=== PATIENT | female | born 1995 | race Two or more races ===

== ENCOUNTER 2023-06-28 05:58 | Inpatient (IN) ==
--- NOTE | 2023-06-25 10:49 | Anesthesiology Consultation ---
Date of Service June 25, 2023 Assessment & Plan (1) Encounter for pre-operative examination: Chart Review Chart Review: entry level project engineer initiated -COVID screening: Per PAT nursing assessment on 06/25/23. No known COVID-19 pos itive contacts or current COVID-19 related symptoms. Travel screen negative. At surgeon discretion if preop Covid testing being done. History Surgery Operation Date: 06/28/23 07:30 Proposed Procedures p Section (Delivery of Baby Through Abdominal Incision) - Jacquelyn Fuentes MD Height/Weight Height: 5 ft 1 in Weight: 69.853 kg Allergies Allergy/AdvReac Type Severity Reaction Status Date / Time No Known Allergies Allergy Verified 06/25/23 09:39 Medications Home Medications Medication Instructions Recorded Confirmed Last Taken vit-iron fum-folic ac 1 tab PO QAM 05/14/23 06/25/23 Unknown [ Vitamin] ferrous sulfate 325 mg (65 mg 325 mg PO DAILY #30 tabs 06/05/23 06/25/23 Unknown iron) tablet Past Medical History Medical History (Updated 06/25/23 @ 10:49 by Joanne Lipscomb PA-C) Anemia Per records -seen by heme- on oral iron- will do iron infusions if PO iron not effective Past Family History Family History Father Heart disease Past Surgical History Surgical History Hx of section Social History Smoking Status: Never smoker Do You Dip or Chew Tobacco: No Hx Alcohol Use: No Hx Substance Use: No substance use type: does not use
--- NOTE | 2023-06-27 16:24 | History & Physical Report ---
Date of Service June 27, 2023 Assessment & Plan (1) Encounter for pre-operative examination: (2) Supervision of normal intrauterine in multigravida: (3) Previous delivery affecting , antepartum: Plan 27 yo at 40 5/7 wga presents for preop to planned repeat CS VSS NST reactive Discussed indications, risks, benefits, alternatives with risks including infection, bleeding, injury to adjacent structures (bowel, bladder, ureters, blood vessels, nerves, baby), possible need for blood transfusion and/or life saving hysterectomy, VTE. Consent reviewed in detail w/ pt and signed after all questions answered to her satisfaction. History of Present Illness Chief Complaint: preop Primary Care Provider: NO PCP 27 yo at 40 5/7 wga presents for preop to planned repeat CS. +FM; denies regular ctx, LOF, VB. PNI: CSx1 GBS+ urine anemia Past erp analyst Hx: G1 2019 pLTCS in [facility] denies hx STIs denies hx abnl paps Allergies Allergy/AdvReac Type Severity Reaction Status Date / Time No Known Allergies Allergy Verified 06/27/23 14:43 Home Medications Medication Instructions Recorded Confirmed Type ferrous sulfate 325 mg (65 mg 325 mg PO DAILY #30 tabs 06/05/23 06/27/23 Rx iron) tablet [id number] 1 mg 1 tab PO QAM 06/27/23 06/27/23 History tablet Patient History Medical History Anemia Per records -seen by heme- on oral iron- will do iron infusions if PO iron not effective Surgical History Hx of section Family History Father Heart disease Social History Smoking Status: Never smoker Second Hand Exposure: No; Do You Dip or Chew Tobacco: No; Hx Alcohol Use: No Hx Substance Use: No Preferred Language: [facility] Python Architect Required: No Beliefs That Will Affect Care: None marital status: marital status details: Savage (34) [phone] Current Living Situation: Family current occupational status: unemployed Feels Safe at Home: Yes Assistive Devices: None Physical Exam Respiratory: normal respiratory effort, lungs clear to auscultation Cardiovascular: RRR, no murmur, no edema Genitourinary: NST reactive Results & Data Laboratory Results OB Labs: Blood Type A Positive 11/22/22 Antibody Screen NEGATIVE 11/22/22 Hemoglobin 12.3 g/dl (12.0-16.0) 04/05/23 Hematocrit 37.1 % (37.0-47.0) 04/05/23 Mean Corpuscular Volume 88.5 fL (80.0-100.0) 01/31/23 Platelet Count 224 K/uL (130-400) 01/31/23 Rubella IgG Antibody Immune (Immune) 11/22/22 Rapid Plasma Reagin Nonreactive (Nonreactive) 11/22/22 Hepatitis B Surface Antigen. NON-REACTIVE (NON-REACTIVE) 11/22/22 Hepatitis C Antibody (EIA) NON-REACTIVE (NON-REACTIVE) 11/22/22 HIV (1&2) Ag and Ab Confirmation NON-REACTIVE (NON-REACTIVE) 11/22/22 Glucose 1 Hour 50 gm Load 121 mg/dl (70-130) 04/05/23 OB Optional Labs: Chlamydia trachomatis RNA Not Detected (NotDetected) 11/22/22 Neisseria gonorrhoeae RNA Not Detected (NotDetected) 11/22/22 Labs Reviewed: declined cf/sma/genetics--akh GBS+ Diagnostic Findings Post plac Coding Level of Care Code None Diagnoses Encounter for pre-operative examination Z01.818 Supervision of normal intrauterine in multigravida Z34.80 Previous delivery affecting , antepartum O34.219
[~2023-06-28 05:58] MED LIST: LACTATED RINGER'S 1,000 ML IV PRN; LIDOCAINE 1% LOCAL 20 ML VIAL INFIL PRN; OXYTOCIN 30 UNITS/500 ML BAG IV PRN
[2023-06-28] MEDS ORDERED: LACTATED RINGER'S 1,000 ML IV SCH (06:00)
[2023-06-28] MEDS ORDERED: CITRIC ACID/SODIUM CITRATE 15 ML UDC PO SCH (06:00)
[2023-06-28] MEDS ORDERED: ceFAZolin 2000MG 2,000 MG/15 ML SYR IV SCH (06:00)
[2023-06-28] MEDS ORDERED: ceFAZolin 2000MG 2,000 MG/15 ML SYR IV ONE (06:30)
[2023-06-28 07:01] LABS: Hematocrit (blood only) 41.1 % (37.0-47.0); Hemoglobin 13.8 g/dl (12.0-16.0); Mean Corpuscular Hemoglobin 31.9 pg (25.0-34.0); Mean Corpuscular Hgb Conc 33.6 g/dL (32.0-36.0); Mean Corpuscular Volume 95.1 fL (80.0-100.0); Platelet Count 180 K/uL (130-400); RDW Coefficient of Variation 14.6 % (11.5-14.5); RDW Standard Deviation 50.3 fL (36.4-46.3); Red Blood Count 4.32 M/uL (4.20-5.40); White Blood Count 6.95 K/ul (4.8-10.8)
--- NOTE | 2023-06-28 08:59 | History & Physical Bridge Note ---
Date of Service June 28, 2023 History & Physical Bridge Note I have examined the patient, reviewed the History & Physical and in the interval since the performance of the History & Physical I have noted the following changes of clinical significance: no changes noted. Delay of starting procedure due to +antibody screen, which did return and upon confirmation of blood availability will move back for procedure
[2023-06-28] MEDS ORDERED: MoRPHine SULFATE PF 1 MG/ML 10 ML AMP/VIAL ONE (09:31)
[2023-06-28] MEDS ORDERED: OXYTOCIN 10 UNITS/ML VIAL ONE (10:02)
[2023-06-28] MEDS ORDERED: fentaNYL citrate PF 100 MCG/2 ML VIAL ONE (10:03)
[2023-06-28] MEDS ORDERED: NALOXONE HCL 0.4 MG/1 ML VIAL/CARP IV PRN (10:17)
[2023-06-28] MEDS ORDERED: HYDROmorphone INJ 0.5 MG/0.5 ML SYR IV PRN (10:17)
[2023-06-28] MEDS ORDERED: METOCLOPRAMIDE HCL 10 MG in SODIUM CHLORIDE 0.9% 50 ML IV PRN (10:17)
[2023-06-28] MEDS ORDERED: MoRPHine SULFATE PF 1 MG/ML 10 ML AMP/VIAL INT SPINAL ONE (10:17)
[2023-06-28] MEDS ORDERED: NALOXONE HCL 1 MG in SODIUM CHLORIDE 0.9% 1000ML 1,000 ML IV PRN (10:17)
[2023-06-28] MEDS ORDERED: LACTATED RINGER'S 500 ML IV PRN (10:17)
[2023-06-28] MEDS ORDERED: MoRPHine SULFATE 2 MG/ML CARP IV PRN (10:17)
[2023-06-28] MEDS ORDERED: NALOXONE HCL 0.08 MG in SYRINGE 1.8 ML IV PRN (10:17)
[2023-06-28] MEDS ORDERED: PROMETHAZINE HCL 12.5 MG in SODIUM CHLORIDE 0.9% 50 ML IV PRN (10:17)
[2023-06-28] MEDS ORDERED: MEPERIDINE HCL 25 MG/ML CARP/VIAL IV PRN (10:17)
[2023-06-28] MEDS ORDERED: NALBUPHINE HCL INJ 10 MG/ML AMP IV PRN (10:17)
[2023-06-28] MEDS ORDERED: diphenhydrAMINE 50 MG/ML VIAL IV PRN (10:17)
[2023-06-28] MEDS ORDERED: ONDANSETRON INJ 2 MG/ML 2 ML VIAL IV PRN (10:17)
[2023-06-28] MEDS ORDERED: ePHEDrine sulfate 50 MG/ML AMP IV PRN (10:17)
[2023-06-28] MEDS ORDERED: SODIUM CHLORIDE 0.9% 1000ML 1,000 ML IV SCH (10:30)
[2023-06-28] MEDS ORDERED: NO NARCOTICS OR SEDATIVES SCH (10:30)
[2023-06-28] MEDS ORDERED: DC INTRASPINAL MORPHINE SCH (10:30)
[2023-06-28] MEDS ORDERED: DIPHTHERIA/TETANUS/PERTUSSIS Vaccine (Tdap, Age 7+yrs) 0.5mL SYR/VL IM ONE (10:32)
[2023-06-28] MEDS ORDERED: SENNA 8.6 MG TAB PO PRN (10:32)
[2023-06-28] MEDS ORDERED: MAGNESIUM HYDROXIDE SUSP 30 ML UDC PO PRN (10:32)
[2023-06-28] MEDS ORDERED: HYDROCORTISONE ACETATE 25 MG SUPP PR PRN (10:32)
[2023-06-28] MEDS ORDERED: BENZOCAINE 20% SPRY 85 APPLN/85 GM CAN EXT PRN (10:32)
[2023-06-28] MEDS ORDERED: ePHEDrine sulfate 50 MG/ML SYR ONE (10:37)
--- NOTE | 2023-06-28 10:41 | Operative Report ---
PG Post Operative Report Pre & Post Diagnosis Operation Date: 06/28/23 07:30 Pre-Op Diagnosis: Single intrauterine at 40 6/7 wga History CS x 1 GBS+ Post-Op Diagnosis: Single intrauterine at 40 6/7 wga History CS x 1 GBS+ I identified the patient and participated in the time-out.: Yes Procedure Operation Date: 06/28/23 07:30 Actual Procedures p Repeat Low Transverse Section; Live female child at 1001(Bilateral) - Jacquelyn Feuntes MD Surgeon Jacquelyn Fuentes MD Forest Botany Instructor MD Elmer Estimated Blood Loss 600 Findings Consistent with Post-Op Diagnosis Normal appearing uterus, bilateral fallopian tubes and ovaries. Lower uterine segment was slightly thin but no window was noted. Viable female infant with APGARs of 8 and 9 at 1 and 5 minutes, respectively Fluids 1L Crystalloid, 300cc UOP by neal catheter Specimens Placenta, cord blood Drains Neal draining clear urine Anesthesia Type Spinal Complications none Disposition Accompanied Patient To Recovery: Yes Disposition: L&D Indications 27 yo at 40 6/7 wga presents for planned repeat CS. Description of Procedure The patient was taken to the operating room after consents were ensured. The patient was properly identified. Spinal anesthesia was obtained without difficulty. The patient was placed in a dorsal supine position with left lateral tilt, then prepped and draped in normal sterile fashion. Surgical time out was performed. Antibiotics were given for prophylaxis. Anesthesia was tested to ensure adequate surgical levels. Pfannenstiel skin incision was performed and carried down to the underlying fascia with a knife. The fascia was then nicked in the midline and extended laterally with pickups and Mackenzie scissors. Superior portion of the fascia was grasped with Kochers x2 and elevated off the underlying rectus muscles using blunt dissection. Inferior portion of the fascia was then grasped with Luis A clamps x2 and also elevated off the underlying muscles with blunt dissection. Midline was identified. The peritoneum was then entered and extended to provide adequate room for delivery of baby. A hand was inserted into the abdomen, uterus was noted to be clear of adhesions. Bladder blade was inserted, bladder flap was created in the usual fashion. A low transverse uterine incision was made in the uterus and extended bluntly in a superior to inferior fashion. Amniotomy was made with clear fluid at the time of rupture. head was grasped and elevated to the hysterotomy in an atraumatic fashion however head did not easily deliver due to asynclitis position. Vacuum was applied to head at flexion point and pressure increased to the green zone. With one pull, head delivered atraumatically and suction removed. The baby delivered in MAYTE position, no nuchal cord. Remainder of the body delivered without incident. Nose and mouth were bulb suctioned on the surgical field. The cord was double clamped and cut, baby was handed off to awaiting pediatrics staff. Cord segment and blood were obtained. Placenta was then expressed from the uterus. The uterus was exteriorized. Several passes were made inside the uterus to remove the remaining membranes. Attention was then turned to the hysterotomy, which was then closed with a running locked suture of 0 Vicryl on a CTX needle. An imbricating layer was then performed using 0-Monocryl. Additional areas of bleeding on the hysterotomy were made with figure of eight stitches with monocryl. There was noted to be good hemostasis. The posterior cul-de-sac was then inspected and cleaned of clot and debris. The hysterotomy was again inspected and noted to be hemostatic. The uterus was returned to the abdomen. The right and left pericolic gutters were cleaned of all clot and debris. The hysterotomy was again noted to be hemostatic. Space of Retzius was noted to be hemostatic. The fascia was then closed with a running suture of 0 Vicryl on a CT1 needle. Subcutaneous tissue was copiously irrigated and noted to be hemostatic. Subcutaneous tissue was re- approximated using 2-0 plain gut. The skin was then closed with a running suture of 3-0 Monocryl in a subcuticular fashion. At termination of the procedure, fundal pressure was applied and a moderate amount of lochia was expressed. Pressure dressing was applied to the patient. She tolerated the procedure well. All sponge, needle, instrument counts were correct x 2. I attest to the content of the Intraoperative Record and any orders documented therein. Any exceptions are noted below. OB Procedure Charges 20188
[2023-06-28] MEDS: KETOROLAC 30 MG/ML VIAL IV PRN ×2 (11:13→20:21)
[2023-06-28] MEDS ORDERED: OXYTOCIN 20 UNITS in LACTATED RINGER'S 1,000 ML IV SCH (11:15)
[2023-06-28] MEDS: SIMETHICONE 80 MG CHEW PO SCH ×3 (14:05→20:19)
[2023-06-28] MEDS: LACTATED RINGER'S 1,000 ML IV SCH (20:04)
[2023-06-28] MEDS: DOCUSATE SODIUM 100 MG CAP PO SCH (20:19)
--- NOTE | 2023-06-28 20:44 | Obstetrical Progress Note ---
Date of Service <Syd Obrien MD - Last Filed: 06/29/23 07:18> June 28, 2023 Assessment & Plan <Syd Obrien MD - Last Filed: 06/29/23 07:18> (1) care following delivery: Plan 27 yo , status post C/S on 06/28/23, day 1 - Pt doing well clinically. Feels well today. Eating well, voiding well, ambulating well. Pain well controlled with PRN pain meds. - Routine care -- OOB, ambulation, diet progression as tolerated Vital Signs reviewed and WNL (Tmax at 37.1) except as noted: mild tachycardia (HR 106, 108) several hrs after C/S Hemoglobin Reviewed. 13.8 (06/28/23) ____ (today). Blood Type: A+, GBS+, Rubella Immune. Encourage ambulation, monitor and control pain with Motrin PRN, resume regular diet, monitor lochia. Breast feeding encouraged. After discharge will have 6 week follow-up with ___. Pt counselled on discharge instructions (only if they are going home that day). <Jacquelyn Fuentes MD - Last Filed: 06/29/23 07:59> (1) care following delivery: Subjective <Syd Obrien MD - Last Filed: 06/29/23 07:18> Ambulation: limited ambulation (still has Neal catheter in) Voiding: neal catheter in place Passing Gas:: Yes Lochia:: Small (barely noticed anything yet) Feeding Type:: breast feeding Current Pain Level(1-10): 2 (medication is helping manage it) 27 yo F, , s/p C/S Review of Systems All systems reviewed & are unremarkable except as noted in HPI & below Constitutional: no fever or no chills Eyes: no diplopia or no worsening vision Respiratory: no cough or no dyspnea Cardiovascular: no chest pain or no palpitations Breast: no breast pain Gastrointestinal: no nausea, no vomiting or no diarrhea/loose stools Musculoskeletal: no myalgia Neurologic: no tingling or no numbness Physical Exam <Syd Obrien MD - Last Filed: 06/29/23 07:18> Respiratory normal respiratory effort, lungs clear to auscultation Cardiovascular RRR, no murmur, no edema Gastrointestinal (Abdomen) Patient prefers a female physician to inspect her incision site. Musculoskeletal Extremities: extremities normal to inspection (no calf pain or tenderness) Results & Data <Syd Obrien MD - Last Filed: 06/29/23 07:18> Vital Signs (Past 12 Hours) Vital Signs Temp Pulse Pulse Resp BP BP Pulse Ox 06/28/23 19:12 37 C 90 20 96/64 L 97 06/28/23 18:22 16 97 06/28/23 17:25 18 99 06/28/23 16:30 37 C 87 16 97/64 L 99 06/28/23 16:17 18 96 06/28/23 15:15 18 96 06/28/23 14:15 16 98 06/28/23 14:15 37.1 C 96 H 16 101/67 98 06/28/23 13:05 18 98 06/28/23 13:05 37 C 103 H 18 112/73 98 06/28/23 10:46 36.5 C 18 06/28/23 12:56 87 96 06/28/23 12:57 97 H 111/71 06/28/23 12:51 108 H 97 06/28/23 12:47 104 H 107/66 06/28/23 12:46 98 H 96 06/28/23 12:41 99 H 98 06/28/23 12:36 91 H 97 06/28/23 12:37 106 H 104/62 06/28/23 12:31 93 H 97 06/28/23 12:26 94 H 98 06/28/23 12:27 100 H 107/62 06/28/23 12:21 98 H 97 06/28/23 12:17 85 110/64 06/28/23 12:16 93 H 98 06/28/23 12:11 107 H 94 06/28/23 12:06 91 H 98 06/28/23 12:07 99 H 110/67 06/28/23 12:01 101 H 97 06/28/23 11:57 81 108/65 06/28/23 11:56 86 97 06/28/23 11:51 93 H 98 06/28/23 11:46 95 H 97 06/28/23 11:41 90 96 06/28/23 11:36 90 98 06/28/23 11:37 90 110/71 06/28/23 11:31 86 97 06/28/23 11:27 80 106/60 06/28/23 11:26 87 97 06/28/23 11:25 95 H 91 06/28/23 11:21 101 H 99 06/28/23 11:17 109 H 105/79 06/28/23 11:16 103 H 98 06/28/23 11:11 99 H 99 06/28/23 11:06 101 H 100 06/28/23 11:07 97 H 126/79 06/28/23 11:01 103 H 100 06/28/23 10:56 98 06/28/23 10:56 87 06/28/23 10:57 84 117/78 06/28/23 10:56 103 H 93 06/28/23 10:51 102 H 97 06/28/23 10:46 104 H 98 06/28/23 10:47 100 H 128/80 O2 Del Method 06/28/23 19:12 Room Air 06/28/23 18:22 06/28/23 17:25 06/28/23 16:30 Room Air 06/28/23 16:17 06/28/23 15:15 06/28/23 14:15 06/28/23 14:15 Room Air 06/28/23 13:05 06/28/23 13:05 Room Air 06/28/23 10:46 06/28/23 12:56 06/28/23 12:57 06/28/23 12:51 06/28/23 12:47 06/28/23 12:46 06/28/23 12:41 06/28/23 12:36 06/28/23 12:37 06/28/23 12:31 06/28/23 12:26 06/28/23 12:27 06/28/23 12:21 06/28/23 12:17 06/28/23 12:16 06/28/23 12:11 06/28/23 12:06 06/28/23 12:07 06/28/23 12:01 06/28/23 11:57 06/28/23 11:56 06/28/23 11:51 06/28/23 11:46 06/28/23 11:41 06/28/23 11:36 06/28/23 11:37 06/28/23 11:31 06/28/23 11:27 06/28/23 11:26 06/28/23 11:25 06/28/23 11:21 06/28/23 11:17 06/28/23 11:16 06/28/23 11:11 06/28/23 11:06 06/28/23 11:07 06/28/23 11:01 06/28/23 10:56 06/28/23 10:56 06/28/23 10:57 06/28/23 10:56 06/28/23 10:51 06/28/23 10:46 06/28/23 10:47 <Jacquelyn Fuentes MD - Last Filed: 06/29/23 07:59> Co-Signing Physician Notes Resident Physician Supervision Note: I interviewed and examined the patient. Discussed with Dr. Obrien and agree with findings and plan as documented in the note. Any exceptions or clarifications are listed here: POD1 s/p rLTCS, doing well. VSS, exam benign and wnl. Dressing c/d/i. Has voided. Continue routine pp care, will remove dressing in shower Documented By: Jacquelyn Fuentes MD
[2023-06-29] MEDS ORDERED: KETOROLAC 30 MG/ML VIAL IV PRN (04:18)
[2023-06-29] MEDS ORDERED: diphenhydrAMINE 50 MG/ML VIAL IV PRN (04:18)
[2023-06-29] MEDS ORDERED: diphenhydrAMINE Capsule 25 MG CAP PO PRN (04:18)
[2023-06-29] MEDS ORDERED: PROMETHAZINE HCL 25 MG in SODIUM CHLORIDE 0.9% 50 ML IV PRN (04:18)
[2023-06-29] MEDS ORDERED: ONDANSETRON INJ 2 MG/ML 2 ML VIAL IV PRN (04:18)
[2023-06-29] MEDS: oxyCODONE/ACETAMINOPHEN 5mg/325mg TAB PO PRN ×4 (04:48→20:11)
[2023-06-29] MEDS: IBUPROFEN 600 MG TAB PO PRN ×4 (04:48→20:12)
[2023-06-29 06:45] LABS: Basophils # (auto) 0.01 K/uL (0-0.2); Basophils % (auto) 0.1 %; Eosinophils % (auto) 1.3 %; Hematocrit (blood only) 32.1 % (37.0-47.0); Hemoglobin 10.8 g/dl (12.0-16.0); Immature Granulocytes # (auto) 0.05 K/uL (0.01-0.20); Immature Granulocytes % (auto) 0.6 %; Lymphocytes # (auto) 1.36 K/uL (1.2-3.4); Lymphocytes % (auto) 17.4 %; Mean Corpuscular Hemoglobin 31.8 pg (25.0-34.0); Mean Corpuscular Hgb Conc 33.6 g/dL (32.0-36.0); Mean Corpuscular Volume 94.4 fL (80.0-100.0); Mean Platelet Volume 11.3 fL (9.4-12.4); Monocytes # (auto) 0.67 K/uL (0.11-0.59); Monocytes % (auto) 8.6 %; Neutrophils # (auto) 5.63 K/uL (1.40-6.50); Platelet Count 150 K/uL (130-400); RDW Coefficient of Variation 14.6 % (11.5-14.5); RDW Standard Deviation 49.8 fL (36.4-46.3); White Blood Count 7.82 K/ul (4.8-10.8)
[2023-06-29] MEDS: SIMETHICONE 80 MG CHEW PO SCH ×3 (09:12→17:41)
[2023-06-29] MEDS: DOCUSATE SODIUM 100 MG CAP PO SCH ×2 (09:12→20:11)
[2023-06-29] MEDS: FERROUS SULFATE 325 MG TAB PO SCH (09:12)
[2023-06-29] MEDS: PRENATAL VITAMIN 1 TAB PO SCH (09:12)
--- NOTE | 2023-06-29 10:05 | Obstetrical Progress Note ---
Date of Service <Syd Obrien MD - Last Filed: 06/30/23 07:14> June 29, 2023 Assessment & Plan <Syd Obrien MD - Last Filed: 06/30/23 07:14> (1) care following delivery: Plan 27 yo , status post C/S on 06/28/23, day 2 - Pt doing well clinically. Feels well today. Eating well, voiding well, ambulating well. Pain well controlled with PRN pain meds. - Routine care -- OOB, ambulation, diet progression as tolerated Vital Signs reviewed and WNL (Tmax at 37.1) except as noted: mild tachycardia (HR 106, 108) several hrs after C/S Hemoglobin Reviewed. 13.8 (06/28/23) 10.8 (06/29/23). Blood Type: A+, GBS+, Rubella Immune. Encourage ambulation, monitor and control pain with Motrin PRN, resume regular diet, monitor lochia. Breast feeding encouraged. After discharge will have 6 week follow-up with Dr. Fuentes. <Milly Pettit MD, FACOG - Last Filed: 06/30/23 07:44> (1) care following delivery: Subjective <Syd Obrien MD - Last Filed: 06/30/23 07:14> Ambulation: ambulating normally (to and from bathroom) Voiding: no voiding problems and no incontinence (still no BM) Passing Gas:: Yes Diet Tolerance:: regular diet Lochia:: Small Feeding Type:: breast feeding Current Pain Level(1-10): 4 (pain in groin area while standing, but no incisional site pain) Constitutional: no fever or no chills Eyes: no diplopia or no worsening vision Respiratory: no cough or no dyspnea Cardiovascular: no chest pain or no palpitations Breast: no breast pain Gastrointestinal: no nausea, no vomiting or no diarrhea/loose stools Musculoskeletal: no myalgia Neurologic: no tingling or no numbness Physical Exam <Syd Obrien MD - Last Filed: 06/30/23 07:14> Respiratory normal respiratory effort, lungs clear to auscultation Cardiovascular RRR, no murmur, no edema Gastrointestinal (Abdomen) Patient prefers abdominal exam to be performed by female provider. Musculoskeletal Extremities: extremities normal to inspection (no calf pain or tenderness) Results & Data <Syd Obrien MD - Last Filed: 06/30/23 07:14> Vital Signs (Past 12 Hours) Vital Signs Temp Pulse Resp BP Pulse Ox O2 Del Method 06/29/23 07:30 36.9 C 80 16 98/62 L 06/29/23 04:45 16 97 06/29/23 03:30 16 98 06/29/23 01:30 16 95 06/29/23 02:30 18 96 06/29/23 00:30 16 93 06/29/23 02:27 37.1 C 94 H 18 98/63 L 96 Room Air 06/28/23 22:30 18 94 06/28/23 23:15 16 95 06/28/23 22:43 37.1 C 81 20 101/66 96 Room Air <Milly Pettit MD, FACOG - Last Filed: 06/30/23 07:44> Co-Signing Physician Notes Resident Physician Supervision Note: I interviewed and examined the patient. Discussed with Dr. Obrien and agree with findings and plan as documented in the note. Any exceptions or clarifications are listed here: Doing well. Desires d/c. Instructions given. Documented By: Milly Pettit MD, FACOG
[2023-06-29] MEDS: LACTATED RINGER'S 1,000 ML IV SCH ×3 (12:42→19:13)
[2023-06-29] MEDS ORDERED: bisacodyL 5 MG TABEC PO SCH (20:00)
[2023-06-30] MEDS: oxyCODONE/ACETAMINOPHEN 5mg/325mg TAB PO PRN ×3 (00:04→10:41)
[2023-06-30] MEDS: SIMETHICONE 80 MG CHEW PO SCH ×3 (00:04→12:25)
[2023-06-30] MEDS: IBUPROFEN 600 MG TAB PO PRN ×4 (00:04→15:36)
[2023-06-30] MEDS: LACTATED RINGER'S 1,000 ML IV SCH (03:51)
[2023-06-30 07:23] LABS: Hematocrit (blood only) 33.9 % (37.0-47.0); Hemoglobin 11.3 g/dl (12.0-16.0)
[2023-06-30] MEDS: FERROUS SULFATE 325 MG TAB PO SCH (08:53)
[2023-06-30] MEDS: PRENATAL VITAMIN 1 TAB PO SCH (08:53)
[2023-06-30] MEDS: DOCUSATE SODIUM 100 MG CAP PO SCH (08:53)
[2023-06-30] MEDS ORDERED: bisacodyL 10 MG SUPP PR PRN (10:32)
== END 2023-06-30 16:46 | disposition home or self-care (01) | DRG 788 ==
LOC: 4S1 05:58 → EDSTATUS 07:30 → 4E2 13:33